=== PATIENT | female | born 1965 | race Caucasian/White ===

== ENCOUNTER 2022-07-25 09:49 | Emergency (ER) | payer OTHER, SELFPAY ==
[2022-07-25 10:11] VITALS: BP 135/52; PULSE 86; RESP 18; TEMP 36.6; O2SAT 99
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
[2022-07-25] MEDS: SILVER SULFADIAZINE 1% CR 50 GM JAR (*BKC) 1 APPLIC TOPICAL (10:29)
[2022-07-25] MEDS: TETANUS,DIPHTHERIA,AC PERTUSSIS ADULT (0.5 ML) BOOSTRIX IM (10:43)
== END 2022-07-25 10:46 | disposition home or self-care (01) ==
PROVIDERS: Emergency Provider Nurse Practitioner Family; PCP Internal Medicine
DX: T24.212A Burn of second degree of left thigh, initial encounter (principal); T31.0 Burns involving less than 10% of body surface; Z23 Encounter for immunization; X12.XXXA Contact with other hot fluids, initial encounter
CPT/HCPCS: 90471; 90715; 99213; A9270; G0463

== ENCOUNTER → 2023-05-31 15:18 | Outpatient (CLI) | payer OTHER, SELFPAY ==
--- NOTE | ~2023-05-31 | XR_ITS ---
XR lumbar spine min 4V DATE: 05/31/2023 16:14 INDICATION: Low back pain TECHNIQUE: AP, lateral, coned lateral lumbosacral and bilateral oblique views COMPARISON: None FINDINGS: Surgical clips, right upper quadrant, likely due to cholecystectomy. There is a prominent a mount fecal material in the colon. There is minimal levoscoliosis of the lumbar spine. The lumbar pedicles are intact. No fracture or brayan ne destruction. There is degenerative change at the apophyseal joints with slight grade 1 anterolisthesis at L4-5. Valerie mbar and lumbosacral interspaces are relatively preserved. The sacroiliac joints are intact. IMPRESSION: Minimal levoscoliosis Minimal grade 1 anterolisthesis at L4-5 Reviewed, dictated and finalized at location [facility] [employer]
--- NOTE | ~2023-05-31 | XR_ITS ---
XR sacroiliac joints min 3V DATE: 05/31/2023 16:14 INDICATION: Sacroiliac pain TECHNIQUE: AP, bilateral oblique views COMPARISON: None FINDINGS: Normal alignment at the pubic symphysis and sacroiliac joints. No erosive change or ankylos is of the sacroiliac joints. No sacral fracture or bone destruction is detected. IMPRESSION: Negative Reviewed, dictated and finalized at [facility]. Reviewed, dictated and finalized at location [facility]. LER UPPER IMPRESSION: Negative
== END ==
PROVIDERS: PCP Internal Medicine
DX: M41.86 Other forms of scoliosis, lumbar region (principal); M53.3 Sacrococcygeal disorders, not elsewhere classified; G89.29 Other chronic pain
CPT/HCPCS: 72110; 72202

== ENCOUNTER 2023-11-15 15:43 | Outpatient (CLI) | payer OTHER, SELFPAY ==
--- NOTE | ~2023-11-15 | MR_ITS ---
MRI of the left knee Clinical history: Pain Technique: Coronal proton density and proton density-weighted images, sagittal proton-density and T2 fat-sat images, and axial proton-density fat-saturated images were acquired. Following intravenous ad ministration of 15 cc MultiHance gadolinium, T1-weighted fat-sat imaging was performed in the axial, coronal, and sagittal planes. Findings: Anterior and posterior cruciate ligaments are intact. Medial collateral ligament and the la teral collateral ligament complex are intact. Popliteus tendon is intact. There is a probable radial tear at the posterior root of the medial meniscus. No lateral meniscal tea r seen. 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 There is additiona l high-grade chondral malacia the femoral trochlea. There is extensive moderate to high-grade chondra l malacia the medial femoral condyle. Lateral compartment cartilage is relatively well-preserved. No suspicious bone marrow signal abnormality seen. Small patellar osteophytes are present. Extensor mechanism is intact. There is a small joint effusion with small Shaw's cyst. No abnormal/suspicious postcontrast enhancement identified. Impression: Radial tear at the posterior root of the medial meniscus. Moderate degenerative change of the patellofemoral compartment and medial femoral condyle, as detaile d above. Small joint effusion with small Shaw's cyst. Reviewed, dictated and finalized at [facility]. Impression: Radial tear at the posterior root of the medial meniscus. Moderate degenerative change of the patellofemoral compartment and medial femor al condyle, as detailed above. Small joint effusion with small Shaw's cyst.
== END 2023-11-15 15:44 ==
DX: M25.562 Pain in left knee (principal)
CPT/HCPCS: 73723; A9577